=== PATIENT | female | born 1930 | race Caucasian/White ===

== ENCOUNTER 2019-05-23 00:24 | Emergency (ER) | payer MEDICARE, OTHER ==
[~2019-05-23] VITALS: Ht 157.5 cm; Wt 66.2 kg
--- NOTE | 2019-05-23 00:25 | ED General ---
General Stated Complaint: SOB History of Present Illness Date Seen by Provider: May 23, 2019 Time Seen by Provider: 00:25 Initial Comments Patient is an 88-year-old female who comes to the emergency department today complaining of intermittent chest pain and shoulder pain. The patient states she has been having symptoms over the last 2-3 days. Her pain is worse when she lays down and improves when she sits up. Otherwise, no additional aggravating or alleviating factors. She does endorse a recent cough which has been productive of some clear colored sputum. She has also felt more short of breath and complains of postnasal drip. Patient reports she has had similar symptoms before related to allergies. She does not have known history of coronary artery disease but she does have diabetes. At the time of presentation, the patient is not currently having pain. She states she laid down to go to bed this evening and her pain felt worse which is what prompted her to come to the ER. Allergies and Home Medications Allergies Coded Allergies: empagliflozin (Verified Allergy, Unknown, 05/23/19) sulfamethoxazole (Verified Allergy, Unknown, 05/23/19) trimethoprim (Verified Allergy, Unknown, 05/23/19) Patient Home Medication List Home Medication List Reviewed: Yes Review of Systems Review of Systems Constitutional: malaise EENTM: see HPI, no symptoms reported Respiratory: see HPI Cardiovascular: see HPI Gastrointestinal: no symptoms reported Musculoskeletal: no symptoms reported Skin: no symptoms reported Physical Exam Vital Signs Vital Signs - First Documented 05/23/19 00:48 Temp 98.0 Pulse 74 Resp 18 B/P (MAP) 170/66 (100) Pulse Ox 97 O2 Delivery Room Air Capillary Refill : Height, Weight, BMI Height: '" Weight: lbs. oz. kg; BMI Method: General Appearance: No Apparent Distress, WD/WN HEENT: PERRL/EOMI, TMs Normal, Pharynx Normal Neck: Full Range of Motion, Normal Inspection Respiratory: Chest Non Tender, No Accessory Muscle Use, Other (mildly diminished airflow bilaterally but no wheezes are heard) Cardiovascular: Regular Rate, Rhythm, No Edema, No JVD, No Murmur Gastrointestinal: Normal Bowel Sounds, Non Tender, Soft Extremity: Normal Capillary Refill, Non Tender Neurologic/Psychiatric: Alert, Oriented x3, No Motor/Sensory Deficits Skin: Normal Color Progress/Results/Core Measures Suspected Sepsis SIRS Temperature: Pulse: Respiratory Rate: Laboratory Tests 05/23/19 00:32: White Blood Count 13.4H Blood Pressure / Mean: Laboratory Tests 05/23/19 00:32: Creatinine 0.79, Platelet Count 346 Results/Orders Lab Results Laboratory Tests Test 05/23/19 00:32 Range/Units White Blood Count 13.4 H 4.3-11.0 10^3/uL Red Blood Count 4.89 4.35-5.85 10^6/uL Hemoglobin 14.0 11.5-16.0 G/DL Hematocrit 44 35-52 % Mean Corpuscular Volume 91 80-99 FL Mean Corpuscular Hemoglobin 29 25-34 PG Mean Corpuscular Hemoglobin Concent 32 32-36 G/DL Red Cell Distribution Width 13.9 10.0-14.5 % Platelet Count 346 130-400 10^3/uL Mean Platelet Volume 10.3 7.4-10.4 FL Neutrophils (%) (Auto) 61 42-75 % Lymphocytes (%) (Auto) 29 12-44 % Monocytes (%) (Auto) 8 0-12 % Eosinophils (%) (Auto) 1 0-10 % Basophils (%) (Auto) 1 0-10 % Neutrophils # (Auto) 8.1 H 1.8-7.8 X 10^3 Lymphocytes # (Auto) 3.9 1.0-4.0 X 10^3 Monocytes # (Auto) 1.1 H 0.0-1.0 X 10^3 Eosinophils # (Auto) 0.2 0.0-0.3 10^3/uL Basophils # (Auto) 0.1 0.0-0.1 10^3/uL Sodium Level 140 135-145 MMOL/L Potassium Level 3.9 3.6-5.0 MMOL/L Chloride Level 99 98-107 MMOL/L Carbon Dioxide Level 26 21-32 MMOL/L Anion Gap 15 H 5-14 MMOL/L Blood Urea Nitrogen 16 7-18 MG/DL Creatinine 0.79 0.60-1.30 MG/DL Estimat Glomerular Filtration Rate > 60 BUN/Creatinine Ratio 20 Glucose Level 148 H 70-105 MG/DL Calcium Level 9.6 8.5-10.1 MG/DL Troponin I < 0.30 <0.30 NG/ML Pro-B-Type Natriuretic Peptide 745.8 H <75.0 PG/ML My Orders Orders - GOMEZMICHAEL DO Ed Iv/Invasive Line Start (05/23/19 00:38) Cbc With Automated Diff (05/23/19 00:38) Basic Metabolic Panel (05/23/19 00:38) Troponin I (05/23/19 00:38) Chest 1 View Ap/Pa Only (05/23/19 00:38) Ekg Tracing (05/23/19 00:38) Probnp Fs (05/23/19 00:41) Albuterol/Ipra Inhalation Soln (Duoneb I (05/23/19 01:30) Svn Small Volume Nebulizer (05/23/19 01:18) Medications Given in ED Current Medications Medications Dose Ordered Sig/Alesia Route Start Time Stop Time Status Last Admin Dose Admin Albuterol/ Ipratropium 3 ml ONCE ONCE INH 05/23/19 01:30 05/23/19 01:31 DC 05/23/19 01:24 3 ML Vital Signs/I&O 05/23/19 00:48 Temp 98.0 Pulse 74 Resp 18 B/P (MAP) 170/66 (100) Pulse Ox 97 O2 Delivery Room Air Capillary Refill : Progress Note : Time: 00:15 Progress Note Patient is seen and examined on arrival to her room. EKG is completed and there are no acute findings to suggest ischemia. The patient's pain has been intermittent for several days. There is no exertional component. It is only worse when she lays down. Will check troponin and EKG and other basic labs. Chest x-ray is also ordered. HEART Score: Hx: 0-1 EK Age: 3 Risk: 2 Trop: 0 HEART Score is 4-5 depending on interpretation of the history being either slightly suspicious or moderately suspicious. Troponin is not elevated. I do not appreciate any acute findings on wet read of chest x-ray. EKG is also nonacute. I recommended to the patient that she stay in the hospital and be transferred. I explained to her that she is at increased risk for major adverse cardiac event given her comorbid conditions. The patient verbalizes understanding of these risks including disability or if she leaves the hospital. She is, however, unwilling to be transferred for inpatient evaluation. The patient is adamant that she will contact her primary physician on Friday to schedule a close follow-up appointment. I informed the patient that she could come back to this emergency Department or go to the nearest emergency department for worsening symptoms. I explained to her that she would require very close follow-up with likely stress testing. Patient's primary physician is in [facility] and she normally gets her care at [facility]. I offered her transfer to that facility this evening and also offered her transfer to our own facility in [place] but the patient did not want to be admitted. She is discharged to home. She is requested to sign AMA paperwork. At the time of discharge, the patient is awake and alert and appropriate. She is competent to make her own decisions. She is accompanied by her son this evening. In the emergency room, she was given 1 DuoNeb treatment which she states did subj ectively improve her cough symptoms. ECG Initial ECG Impression Date: May 23, 2019 Initial ECG Impression Time: 00:45 Initial ECG Rate: 74 Initial ECG Rhythm: Normal Sinus Initial ECG Intervals: Normal Departure Impression Primary Impression: Chest pain Disposition: 07 AGAINST MEDICAL ADVICE Condition: Against Medical Advice MICHAEL GOMEZ DO May 23, 2019 00:25
[2019-05-23 00:47] LABS: HEMATOCRIT 44 % (35-52); LYMPHOCYTES % (AUTO) 29 % (12-44); MEAN CORPUSCULAR HEMOGLOBIN 29 PG (25-34); MEAN CORPUSCULAR HGB CONC 32 G/DL (32-36); MEAN CORPUSCULAR VOLUME 91 FL (80-99); MEAN PLATELET VOLUME 10.3 FL (7.4-10.4); NEUTROPHILS % (AUTO) 61 % (42-75); PLATELET COUNT 346 10^3/uL (130-400); RED CELL DISTRIBUTION WIDTH 13.9 % (10.0-14.5); WHITE BLOOD COUNT 13.4 10^3/uL (4.3-11.0)
[2019-05-23 00:48] LABS: BASOPHILS # (AUTO) 0.1 10^3/uL (0.0-0.1); BASOPHILS % (AUTO) 1 % (0-10); EOSINOPHILS # (AUTO) 0.2 10^3/uL (0.0-0.3); EOSINOPHILS % (AUTO) 1 % (0-10); LYMPHOCYTES # (AUTO) 3.9 X 10^3 (1.0-4.0); MONOCYTES # (AUTO) 1.1 X 10^3 (0.0-1.0); MONOCYTES % (AUTO) 8 % (0-12); NEUTROPHILS # (AUTO) 8.1 X 10^3 (1.8-7.8)
[2019-05-23 01:15] LABS: SODIUM 140 MMOL/L (135-145)
[2019-05-23 01:16] LABS: BUN/CREATININE RATIO 20; CALCIUM 9.6 MG/DL (8.5-10.1); CARBON DIOXIDE 26 MMOL/L (21-32); CHLORIDE 99 MMOL/L (98-107); CREATININE SERUM 0.79 MG/DL (0.60-1.30); GFR ESTIMATED > 60; GLUCOSE 148 MG/DL (70-105); POTASSIUM 3.9 MMOL/L (3.6-5.0)
[2019-05-23] MEDS ORDERED: RT-ALBUTEROL/IPRATROPIUM 3 ML (DUONEB) VIAL INH ONE (01:30)
[2019-05-23 01:58] VITALS: BP 146/63
--- NOTE | 2019-05-23 07:41 | Diagnostic Imaging Report ---
INDICATION: Chest pain FINDINGS: The lungs clear. No failure, effusion or pneumothorax. IMPRESSION: Negative Dictated by: Dictated on workstation # [id number]
== END 2019-05-23 01:58 | disposition left against medical advice (07) ==
LOC: ER FS 00:25
DX: R07.9 Chest pain, unspecified (principal); E11.9 Type 2 diabetes mellitus without complications; Z88.1 Allergy status to other antibiotic agents; Z88.2 Allergy status to sulfonamides
CPT/HCPCS: 36415; 71045; 80048; 83880; 84484; 85025; 93005